=== PATIENT | female | born 1995 | race Caucasian/White ===

== ENCOUNTER 2016-11-27 21:12 | Emergency (ER) | payer OTHER ==
[2016-11-27 21:25] VITALS: TEMP 98.2
[2016-11-27] MEDS ORDERED: MethylPREDNISolone 40 mg Vial ONE (22:15)
--- NOTE | 2016-11-27 22:17 | C.PDOC ---
History Of Present Illness 21 year old female presents to the ED with complaints of an itchy rash for six days. Patient states she saw her doctor Thursday who diagnosed her with an allergic reaction and prescribed hydroxyzine pamoate with no relief. She states the rash is spreading, prompting visit. Patient denies any fever, SOB, or difficulty swallowing. No known allergen. No new medication or foods. Time Seen by Provider: 11/27/16 21:37 Chief Complaint (Nursing): Abnormal Skin Integrity History Per: Patient History/Exam Limitations: no limitations Onset/Duration Of Symptoms: Days (6 days ) Current Symptoms Are (Timing): Still Present Quality Of Symptoms: Itching Recent travel outside of the [place]: No Past Medical History Reviewed: Historical Data, Nursing Documentation, Vital Signs Vital Signs: Last Vital Signs Temp 98.2 F 11/27/16 21:19 Pulse 82 11/27/16 22:50 Resp 18 11/27/16 22:50 BP 112/78 11/27/16 22:50 Pulse Ox 100 11/28/16 01:49 - Medical History PMH: Asthma Family History: States: Unknown Family Hx - Social History Hx Tobacco Use: No Hx Alcohol Use: No Hx Substance Use: No - Immunization History Hx Tetanus Toxoid Vaccination: Yes Hx Influenza Vaccination: Yes Hx Pneumococcal Vaccination: No Review Of Systems Constitutional: Negative for: Fever, Chills Cardiovascular: Negative for: Chest Pain, Palpitations Respiratory: Negative for: Cough, Shortness of Breath Gastrointestinal: Negative for: Nausea, Vomiting, Abdominal Pain, Diarrhea Skin: Positive for: Rash (diffuse itchy rash ) Physical Exam - Physical Exam Appears: Non-toxic, No Acute Distress Skin: Warm, Dry, Other (diffuse erythematus maculopapular rash that is blanching ; spares face. no vesicles. ) Head: Atraumatic, Normacephalic Eye(s): bilateral: Normal Inspection, PERRL, EOMI Ear(s): Bilateral: Normal Nose: Normal Oral Mucosa: Moist Tongue: No Swelling Lips: No Swelling Throat: Normal, No Erythema, No Exudate Neck: Normal ROM, Supple Chest: Symmetrical, No Deformity Cardiovascular: Rhythm Regular Respiratory: Normal Breath Sounds, No Rales, No Rhonchi, No Stridor, No Wheezing Gastrointestinal/Abdominal: Soft, No Tenderness, No Distention, No Guarding, No Rebound Back: Normal Inspection Extremity: Normal ROM, No Tenderness Neurological/Psych: Oriented x3, Normal Speech ED Course And Treatment O2 Sat by Pulse Oximetry: 100 (room air ) Progress Note: Patient is resting comfortably, tolerating PO, has no shortness of breath, has no intra-oral swelling, no stridor, no rash or pruritus. Patient was advised to avoid potential allergens, and to follow up with physician in 1- 2 days. Reevaluation Time: 22:15 Reassessment Condition: Improved Medical Decision Making Medical Decision Making: Patient was given Solu-Medrolwith relief and instructed to follow up with foundation relations manager in 1-2 days. Disposition - Disposition Disposition: HOME/ ROUTINE Disposition Time: 22:14 Condition: STABLE Additional Instructions: Follow up with primary medical doctor in 1-3 days without fail for further evaluation. Take medications as prescribed. Return to the emergency department at any time if symptoms persist or worsen. Prescriptions: Calamine/Pramoxine [Caladryl] 180 ml TP QID PRN #1 bottle PRN Reason: Itching / Pruritus DiphenhydrAMINE [Benadryl] 25 mg PO Q6 #20 cap predniSONE [Prednisone] 40 mg PO DAILY #8 tab Instructions: Acute Rash (ED) - Clinical Impression Clinical Impression: Rash - Scribe Statement The provider has reviewed the documentation as recorded by the Scribmayito Nur All medical record entries made by the Pricilaibmaiyto were at my direction and personally dictated by me. I have reviewed the chart and agree that the record accurately reflects my personal performance of the history, physical exam, medical decision making, and the department course for this patient. I have also personally directed, reviewed, and agree with the discharge instructions and disposition.
[2016-11-27] MEDS: MethylPREDNISolone 40 mg Vial IM STA (22:25)
[2016-11-27 23:12] VITALS: BP 112/78; PULSE 82; RESP 18
[2016-11-28 01:46] VITALS: O2SAT 100
== END 2016-11-27 23:12 | disposition home or self-care (01) ==
LOC: C.ER 21:12
DX: R21 Rash and other nonspecific skin eruption (principal)
CPT/HCPCS: 96372; 99283; J2920

== ENCOUNTER 2017-10-16 10:29 | Emergency (ER) | payer OTHER ==
[2017-10-16 11:05] VITALS: RESP 20
--- NOTE | 2017-10-16 11:18 | C.PDOC ---
History Of Present Illness 22 year old female presents to the emergency department with complaints of a brownish vaginal discharge persisting for the past week. Patient reports that she was recently checked for an STD. Patient denies pain and fever. Time Seen by Provider: 10/16/17 10:57 Chief Complaint (Nursing): Female Genitourinary History Per: Patient History/Exam Limitations: no limitations Onset/Duration Of Symptoms: Days (7) Current Symptoms Are (Timing): Still Present Quality Of Discomfort: denies: "Pain" Associated Symptoms: Other. denies: Fever Past Medical History Reviewed: Historical Data, Nursing Documentation, Vital Signs Vital Signs: Last Vital Signs Temp 98.8 F 10/16/17 13:29 Pulse 86 10/16/17 13:29 Resp 20 10/16/17 13:29 BP 136/67 10/16/17 13:29 Pulse Ox 99 10/16/17 13:29 - Medical History PMH: Asthma Surgical History: No Surg Hx Family History: States: No Known Family Hx - Social History Hx Tobacco Use: No Hx Alcohol Use: No Hx Substance Use: No - Immunization History Hx Tetanus Toxoid Vaccination: Yes Hx Influenza Vaccination: Yes Hx Pneumococcal Vaccination: No Review Of Systems Except As Marked, All Systems Reviewed And Found Negative. Constitutional: Negative for: Fever Genitourinary: Positive for: Vaginal Discharge Physical Exam - Physical Exam Appears: Non-toxic, No Acute Distress Skin: Warm, Dry Head: Atraumatic, Normacephalic Eye(s): bilateral: Normal Inspection Cardiovascular: Rhythm Regular Respiratory: Normal Breath Sounds Gastrointestinal/Abdominal: Soft, No Tenderness, No Guarding, No Rebound Pelvic: Vaginal Discharge (minimal light-brownish discharge) Neurological/Psych: Oriented x3, Normal Speech, Normal Cognition ED Course And Treatment O2 Sat by Pulse Oximetry: 100 (RA) Pulse Ox Interpretation: Normal Medical Decision Making Medical Decision Making: Plan: Chlamydia/GC RNA Urinalysis Disposition - Disposition Referrals: [facility] [Outside] [facility] [Outside] [facility] [Outside] Shannon Noriega MD [Staff Provider] - Disposition: HOME/ ROUTINE Disposition Time: 01:00 Condition: STABLE Additional Instructions: follow up with your doctor. return toer with worsening symptoms or concerns. Prescriptions: metroNIDAZOLE [Flagyl] 500 mg PO BID #14 tab Instructions: Bacterial Vaginosis, Vaginal Discharge in Adults Forms: [facility] (Irish) - Clinical Impression Clinical Impression: Vaginal discharge - Scribe Statement The provider has reviewed the documentation as recorded by the Scribe (Jasvir Willis) Provider Attestation: All medical record entries made by the Scribe were at my direction and personally dictated by me. I have reviewed the chart and agree that the record accurately reflects my personal performance of the history, physical exam, medical decision making, and the department course for this patient. I have also personally directed, reviewed, and agree with the discharge instructions and disposition.
[2017-10-16 12:07] LABS: SQUAMOUS EPITHIAL 2 /hpf (0-5); URINE BACTERIA RARE (<OCC); URINE BILIRUBIN NEGATIVE (NEGATIVE); URINE BLOOD NEGATIVE (NEGATIVE); URINE CLARITY Clear (Clear); URINE COLOR Yellow (YELLOW); URINE GLUCOSE (UA) NORMAL (Normal); URINE LEUKOCYTE ESTERASE TRACE Leu/uL (Negative); URINE PROTEIN NEGATIVE (NEGATIVE); URINE UROBILINOGEN NORMAL mg/dL (0.2-1.0)
[2017-10-16 13:30] VITALS: BP 136/67; PULSE 86; TEMP 98.8
[2017-10-16 13:51] VITALS: O2SAT 100
== END 2017-10-16 13:30 | disposition home or self-care (01) ==
LOC: C.ER 10:29
DX: N89.8 Other specified noninflammatory disorders of vagina (principal)